=== PATIENT | male | born 1950 | race Caucasian/White ===

== ENCOUNTER 2024-08-25 06:35 | Day surgery (SDC) | payer MEDICARE ==
[2024-08-24 11:21] VITALS: BMI 24.6
[~2024-08-25 06:35] MED LIST: EPINEPHrine 0.3 MG in Ophthalmic Irrigation Solution 500 ML IRR SCH
[2024-08-25] MEDS ORDERED: Cyclopentolate 1% Opth Drop 2 ML BOT ONE (07:16)
[2024-08-25] MEDS ORDERED: PHENYLephrine 2.5% Ophth Soln 15 ml Bottle ONE (07:16)
[2024-08-25] MEDS ORDERED: PROPOFOL 20 ML ONE (08:34)
[2024-08-25] MEDS ORDERED: fentaNYL 50 mcg/mL 1 mL Vial ONE (08:34)
[2024-08-25] MEDS ORDERED: Midazolam HCl 2 mg/2 ml Vial ONE (08:34)
[2024-08-25] MEDS ORDERED: Lidocaine 1% PF 5 ML VIAL ONE ×2 (08:35→08:59)
[2024-08-25] MEDS ORDERED: Bupivacaine 0.75% 10 ML VIAL ONE (08:59)
[2024-08-25] MEDS ORDERED: Triamcinolone 40 MG/ML VIAL ONE (08:59)
[2024-08-25] MEDS ORDERED: Indocyanine Green 25 MG/10 ML VIAL ONE (08:59)
[2024-08-25] MEDS ORDERED: Lidocaine 4% PF 5 ML AMP ONE (08:59)
[2024-08-25] MEDS ORDERED: Maxitrol 0.1% Opth Oint 3.5 GM TUBE ONE (08:59)
[2024-08-25] MEDS ORDERED: CEFAZOLIN 1 GM VIAL ONE (08:59)
== END 2024-08-25 10:32 | disposition home or self-care (01) ==
LOC: SDC 06:35
PROVIDERS: ATTEND Ophthalmology Retina Specialist
PROC: 08T53ZZ Resection of Left Vitreous, Percutaneous Approach (ICD-10-PCS; principal; 2024-08-25)
DX: H35.372 Puckering of macula, left eye (principal); Z88.5 Allergy status to narcotic agent; Z91.041 Radiographic dye allergy status
CPT/HCPCS: 67041; J0171; J0690; J2250; J2704; J3010; J3301; J3490